=== PATIENT | male | born 1970 | race Caucasian/White ===

== ENCOUNTER 2018-02-19 20:34 | Emergency (ER) | payer BC ==
[2018-02-19] MEDS ORDERED: Venlafaxine 150 MG Cap.ER ONE (20:40)
--- NOTE | 2018-02-19 21:10 | EDM.PDOC ---
ED HPI GENERAL MEDICAL PROBLEM - General Chief Complaint: General Stated Complaint: NEEDS EFFEXOR Time Seen by Provider: 02/19/18 20:50 Source of Information: Reports: Patient History Limitations: Reports: No Limitations - History of Present Illness INITIAL COMMENTS - FREE TEXT/NARRATIVE: Pt is from [place], [place]. He is her on fishing trip. He does have anxiety and has been on Effexor XR 150mg daily. He forgot to pack the medication when he was leaving today, and now has noticed that he has not taken the medication for the day and he has been having agitation and gets angry and upset for no reason. He is here to get medication until Wednesday, when he can go back to [place], [place]. Improves with: Reports: None Worsens with: Reports: None Associated Symptoms: Denies: Confusion, Chest Pain, Cough, Diaphoresis, Fever/ Chills, Headaches, Loss of Appetite, Nausea/Vomiting, Rash, Seizure, Shortness of Breath, Syncope, Weakness - Related Data Allergies Allergy/AdvReac Type Severity Reaction Status Date / Time No Known Allergies Allergy Verified 02/19/18 20:37 Home Meds: Home Meds Levothyroxine [Synthroid] 88 mcg PO ACBREAKFAST 02/19/18 [History] Venlafaxine [Effexor XR] 150 mg PO BEDTIME 02/19/18 [History] traMADol [Ultram] 50 mg PO Q6H PRN 02/19/18 [History] Past Medical History Psychiatric History: Reports: Anxiety Endocrine/Metabolic History: Reports: Hypothyroidism - Infectious Disease History Infectious Disease History: Reports: Chicken Pox - Past Surgical History Musculoskeletal Surgical History: Reports: Shoulder Surgery Social & Family History - Family History Family Medical History: Noncontributory - Tobacco Use Smoking Status *Q: Current Every Day Smoker Years of Tobacco use: 20 Packs/Tins Daily: 1 Used Tobacco, but Quit: No Second Hand Smoke Exposure: No - Caffeine Use Caffeine Use: Reports: Energy Drinks, Soda - Recreational Drug Use Recreational Drug Use: No ED ROS GENERAL - Review of Systems Review Of Systems: See Below Constitutional: Denies: Fever, Chills, Malaise HEENT: Denies: Rhinitis, Throat Pain, Throat Swelling Respiratory: Denies: Shortness of Breath, Pleuritic Chest Pain, Cough, Sputum Cardiovascular: Denies: Chest Pain, Lightheadedness GI/Abdominal: Denies: Nausea, Vomiting : Denies: Dysuria, Flank Pain Musculoskeletal: Denies: Joint Pain, Joint Swelling Skin: Denies: Bruising, Pruritis, Rash ED EXAM, GENERAL - Physical Exam Exam: See Below Exam Limited By: No Limitations General Appearance: Alert, WD/WN, No Apparent Distress Eye Exam: Bilateral Eye: EOMI, PERRL Ears: Normal External Exam, Normal Canal, Hearing Grossly Normal, Normal TMs Ear Exam: Bilateral Ear: Auricle Normal, Canal Normal, TM normal Nose: Normal Inspection, Normal Mucosa, No Blood Throat/Mouth: Normal Inspection, Normal Lips, Normal Teeth, Normal Gums, Normal Oropharynx, Normal Voice, No Airway Compromise Head: Atraumatic, Normocephalic Neck: Normal Inspection Respiratory/Chest: No Respiratory Distress, Lungs Clear, Normal Breath Sounds, No Accessory Muscle Use, Chest Non-Tender Cardiovascular: Normal Peripheral Pulses, Regular Rate, Rhythm, No Edema, No Gallop, No JVD, No Murmur, No Rub Neurological: Alert, Oriented, CN II-XII Intact Psychiatric: Normal Affect, Anxious. No: Depressed Mood, Flat Affect, Tearful Course - Vital Signs Text/Narrative:: Pt reassured. He did get 2 tablet of Effexor [id number] to take for next 2 days. Advised to followup with his primary care on Wednesday if he needs further refill. Pt claims he has meds at home and only needs for next 2 days. Last Recorded V/S: Last Vital Signs Temp 97.8 F 02/19/18 20:54 Pulse 63 02/19/18 20:54 Resp 20 02/19/18 20:54 BP 111/85 02/19/18 20:54 Pulse Ox 100 02/19/18 20:54 Departure - Departure Time of Disposition: 21:05 Disposition: Home, Self-Care 01 Condition: Good Clinical Impression: Anxiety disorder - Discharge Information Forms: ED Department Discharge Additional Instructions: We have provided you with 2 tablets of your regularly prescribed Effexor. This is enough for tonight and tomorrow. Follow up with regular provider for refill of this prescription. Call with any questions. - Problem List & Annotations (1) Anxiety disorder SNOMED Code(s): 656710460 Code(s): F41.9 - ANXIETY DISORDER, UNSPECIFIED Status: Acute - Problem List Review Problem List Initiated/Reviewed/Updated: Yes - Assessment/Plan Assessment:: Anxiety disorder Plan: Pt reassured. He did get 2 tablet of Effexor [id number] to take for next 2 days. Advised to followup with his primary care on Wednesday if he needs further refill. Pt claims he has meds at home and only needs for next 2 days.
== END 2018-02-19 21:00 | disposition home or self-care (01) ==
LOC: LB.ED 20:34
DX: F41.9 Anxiety disorder, unspecified (principal); F17.210 Nicotine dependence, cigarettes, uncomplicated; E03.9 Hypothyroidism, unspecified; Z79.899 Other long term (current) drug therapy
CPT/HCPCS: 99283; A9270